=== PATIENT | female | born 1980 ===

== ENCOUNTER 2021-06-15 15:56 | Emergency (ER) | payer BC ==
[2021-06-15] MEDS ORDERED: Sodium Chloride 0.9% 10 ML Syringe FLUSH PRN (16:14)
[2021-06-15] MEDS ORDERED: HYDROmorphone 0.5 MG/0.5 ML Syringe IVPUSH ONE (16:16)
[2021-06-15 17:02] LABS: ANION GAP 11.7 mEq/L (7-13); CHLORIDE,CL 105 mmol/L (98-107); SODIUM,NA 141 mmol/L (136-145)
[2021-06-15] MEDS ORDERED: Iopamidol 612 MG/ML 100 ML Bottle IVPUSH ONE (17:24)
[2021-06-15 17:56] LABS: BENZODIAZEPINE,URINE POSITIVE (NEGATIVE); MDMA (ECSTASY), URINE NEGATIVE (NEGATIVE); METHADONE,URINE NEGATIVE (NEGATIVE); METHAMPHETAMINES,URINE NEGATIVE (NEGATIVE); OPIATES,URINE POSITIVE (NEGATIVE); TCA,URINE NEGATIVE (NEGATIVE)
[2021-06-15 17:57] LABS: AMPHETAMINES,URINE NEGATIVE (NEGATIVE); BARBITURATES,URINE NEGATIVE (NEGATIVE); OXYCODONE,URINE POSITIVE (NEGATIVE); PHENCYCLIDINE,URINE NEGATIVE (NEGATIVE)
[2021-06-15 18:11] LABS: CORONAVIRUS COVID-19 NAA POSITIVE (NEGATIVE)
== END 2021-06-15 19:21 | disposition home or self-care (01) ==
LOC: DL.ED 15:56
DX: U07.1 COVID-19 (principal); Z88.0 Allergy status to penicillin; Z88.1 Allergy status to other antibiotic agents
CPT/HCPCS: 0240U; 36415; 74177; 80053; 80305; 80307; 81001; 83605; 83690; 83735; 84443; 84703; 85025; 86140; 96374; 99284; J1170; Q9967

== ENCOUNTER 2021-08-12 13:00 | Observation (INO) | payer BC ==
[2021-08-12] MEDS ORDERED: Lactated Ringers 1,000 ML IV ONE (13:45)
[2021-08-12] MEDS ORDERED: Ondansetron 4 MG/2 ML SDV IVPUSH ONE ×2 (13:46→16:20)
[2021-08-12 15:32] LABS: ANION GAP 18.7 mEq/L (7-13); CHLORIDE,CL 102 mmol/L (98-107); SODIUM,NA 140 mmol/L (136-145)
[2021-08-12] MEDS ORDERED: Iopamidol 612 MG/ML 100 ML Bottle IVPUSH ONE (16:00)
[2021-08-12] MEDS ORDERED: Midazolam 1 MG/ML 2 ML SDV IVPUSH ONE (16:53)
[2021-08-12] MEDS ORDERED: Temazepam 15 MG Cap PO PRN (18:56)
[2021-08-12] MEDS ORDERED: Morphine 2 MG/ML SYRINGE IVPUSH PRN (18:56)
[2021-08-12] MEDS ORDERED: Sodium Chloride 0.9% 10 ML Syringe FLUSH PRN (18:56)
[2021-08-12] MEDS: Pantoprazole 40 MG Vial IVPUSH SCH (20:27)
[2021-08-12] MEDS: Sodium Chloride 0.9% 10 ML Syringe FLUSH SCH (20:27)
[2021-08-12] MEDS: Ondansetron 4 MG/2 ML SDV IVPUSH PRN (20:28)
[2021-08-12] MEDS: NS + KCl 20mEq/L 1,000 ML IV SCH (20:28)
[2021-08-12] MEDS: Heparin Sodium 5,000 Units/ML Vial SUBCUT SCH (22:37)
[2021-08-12] MEDS: Acetaminophen 325 MG Tab PO PRN (22:39)
[2021-08-13] MEDS: Ondansetron 4 MG/2 ML SDV IVPUSH PRN ×3 (02:34→19:50)
[2021-08-13] MEDS: NS + KCl 20mEq/L 1,000 ML IV SCH ×3 (04:31→21:22)
[2021-08-13] MEDS: Heparin Sodium 5,000 Units/ML Vial SUBCUT SCH ×3 (06:02→21:29)
[2021-08-13 06:44] LABS: ANION GAP 16.6 mEq/L (7-13); CHLORIDE,CL 107 mmol/L (98-107); SODIUM,NA 144 mmol/L (136-145)
[2021-08-13] MEDS: traZODone 50 MG Tab PO SCH (09:10)
[2021-08-13] MEDS: DULoxetine 30 MG Cap PO SCH (09:10)
[2021-08-13] MEDS: Pantoprazole 40 MG Vial IVPUSH SCH ×2 (09:11→21:29)
[2021-08-13] MEDS: Sodium Chloride 0.9% 10 ML Syringe FLUSH SCH ×2 (09:12→21:34)
[2021-08-13] MEDS ORDERED: Loperamide 2 MG Cap PO ONE (10:00)
[2021-08-13] MEDS ORDERED: Promethazine 25 MG Tab PO PRN (12:09)
[2021-08-13] MEDS: Acetaminophen 325 MG Tab PO PRN (12:18)
[2021-08-13] MEDS ORDERED: Calcium Carbonate 500 MG Tab.Chew PO PRN (13:13)
[2021-08-13] MEDS ORDERED: Loperamide 2 MG Cap PO PRN (13:14)
[2021-08-13] MEDS: Famotidine 20 MG/2 ML SDV IVPUSH SCH ×2 (14:17→21:25)
[2021-08-13] MEDS: Acetaminophen/HYDROcodone 325-10 MG Tab PO PRN (19:49)
[2021-08-14] MEDS: NS + KCl 20mEq/L 1,000 ML IV SCH (05:04)
[2021-08-14] MEDS: Heparin Sodium 5,000 Units/ML Vial SUBCUT SCH (05:04)
[2021-08-14] MEDS: Acetaminophen/HYDROcodone 325-10 MG Tab PO PRN (05:07)
[2021-08-14] MEDS: Ondansetron 4 MG/2 ML SDV IVPUSH PRN (05:07)
[2021-08-14 06:33] LABS: CHLORIDE,CL 107 mmol/L (98-107); SODIUM,NA 142 mmol/L (136-145)
[2021-08-14] MEDS: DULoxetine 30 MG Cap PO SCH (08:32)
[2021-08-14] MEDS: traZODone 50 MG Tab PO SCH (08:39)
[2021-08-14] MEDS: Pantoprazole 40 MG Vial IVPUSH SCH (10:23)
[2021-08-14] MEDS: Famotidine 20 MG/2 ML SDV IVPUSH SCH (10:23)
[2021-08-14] MEDS: Sodium Chloride 0.9% 10 ML Syringe FLUSH SCH (10:23)
== END 2021-08-14 10:12 | disposition home or self-care (01) ==
LOC: DL.ED 13:00 → UNDOADMOB 17:54 → DL.MS 17:54
PROVIDERS: ADMIT Internal Medicine; ATTEND Internal Medicine
DX: R11.2 Nausea with vomiting, unspecified (principal); K52.9 Noninfective gastroenteritis and colitis, unspecified; M79.7 Fibromyalgia; N92.0 Excessive and frequent menstruation with regular cycle; R82.90 Unspecified abnormal findings in urine; R73.9 Hyperglycemia, unspecified; F41.9 Anxiety disorder, unspecified; R74.01 Elevation of levels of liver transaminase levels; F32.A Depression, unspecified; Z88.0 Allergy status to penicillin; Z88.1 Allergy status to other antibiotic agents; Z90.49 Acquired absence of other specified parts of digestive tract; Z79.899 Other long term (current) drug therapy; Z98.890 Other specified postprocedural states; Z20.822 Contact with and (suspected) exposure to COVID-19; Z86.59 Personal history of other mental and behavioral disorders
CPT/HCPCS: 36415; 43752; 74177; 80048; 80053; 80076; 81001; 82150; 83605; 83690; 83735; 84100; 84484; 85025; 85027; 86140; 87086; 87088; 87186; 87635; 93005; 93010; 96372; 96374; 96375; 96376; 99284; 99285; A9270; C9113; G0378; J1644; J2250; J2270; J2405; J3480; J3490; J7120; Q9967; U0002